=== PATIENT | male | born 1985 | race Caucasian/White ===

== ENCOUNTER 2018-04-25 19:40 | Emergency (ER) | payer OTHER, SELFPAY ==
[2018-04-25 19:48] VITALS: BP 144/97; PULSE 96; RESP 20; TEMP 37; O2SAT 97; BMI 33.0
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
--- NOTE | 2018-04-25 20:03 | DI.RAD.S_ITS ---
PROCEDURE: XR WRIST RT MIN 3V INDICATIONS: [facility] TECHNIQUE: 4 views of the wrist were acquired. COMPARISON: None. FINDINGS: Bones: No fractures or dislocations. No suspicious bony lesions. Scaphoid view: No fracture. Soft tissues: No suspicious soft tissue calcifications. IMPRESSION: No visualized acute fracture or dislocation. However, if clinical concern and/or pain persist, short interval imaging followup in 7-10 days is recommended, as occult injury cannot be definitively excluded. Dictated by: Aisha Keene M.D. on 04/25/2018 at 20:32 Approved by: Aisha Keene M.D. on 04/25/2018 at 20:33
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
[2018-04-25] MEDS: CYCLOBENZAPRINE 10 MG TABLET PO (21:51)
[2018-04-25] MEDS: KETOROLAC 60 MG/2 ML VIAL IM (21:52)
[2018-04-25 22:07] VITALS: BP 126/83; PULSE 75; RESP 16; O2SAT 96
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
--- NOTE | 2018-04-29 17:58 | PC.NURSE ---
Attempted to follow up call,no answer
== END 2018-04-25 22:18 | disposition home or self-care (01) ==
PROVIDERS: Emergency Provider Nurse Practitioner Family
DX: M25.531 Pain in right wrist (principal); M25.511 Pain in right shoulder; V28.4XXA Motorcycle driver injured in noncollision transport accident in traffic accident, initial encounter
CPT/HCPCS: 70450; 72125; 73030; 73110; 96374; 99282; 99284; J1885

== ENCOUNTER → 2019-05-18 09:14 | Outpatient (CLI) | payer OTHER, SELFPAY ==
[2019-05-18 10:08] LABS: Influenza A and B by PCR Rapid Negative (Negative)
== END ==
PROVIDERS: Visit Provider Physician Assistant
DX: R68.89 Other general symptoms and signs (principal)
CPT/HCPCS: 87502

== ENCOUNTER 2022-11-30 21:12 | Emergency (ER) | payer OTHER, SELFPAY ==
[2022-11-30 21:18] VITALS: BP 162/88; PULSE 104; RESP 16; TEMP 36.6; O2SAT 97; BMI 35.9
[2022-11-30 21:21] VITALS: BP 162/88; PULSE 111; O2SAT 96
[2022-11-30 21:30] VITALS: PULSE 107; O2SAT 94
--- NOTE | 2022-11-30 21:39 | DI.RAD.S_ITS ---
PROCEDURE: XR CHEST 2V INDICATIONS: cough TECHNIQUE: 2 views of the chest were acquired. COMPARISON: [facility], , CHEST 2 VIEW, 08/12/2007, 19:39. FINDINGS: Surgical changes and devices: None. Lungs and pleura: Lungs are clear. No pleural effusions or pneumothorax. Mediastinum: Mediastinal contours are normal. Heart size is normal. Bones and chest wall: No suspicious bony abnormalities. Soft tissues appear unremarkable. IMPRESSION: 1. No acute cardiopulmonary disease. Dictated by: Chicho Green M.D. on 11/30/2022 at 22:59 Approved by: Chicho Green M.D. on 11/30/2022 at 22:59
[2022-11-30 22:00] VITALS: PULSE 99; O2SAT 93
[2022-11-30 22:48] LABS: Influenza A - CEPHEID Flu A NEGATIVE (NEGATIVE); Influenza B - CEPHEID Flu B NEGATIVE (NEGATIVE); Respiratory Syncytial Virus Negative (Negative)
[2022-11-30 22:49] LABS: COVID-19 CEPHEID 4-PLEX PCR Negative (Negative)
--- NOTE | 2022-11-30 23:35 | ED.URI ---
HPI - URI/Sore Throat General Chief Complaint: Upper Respiratory Symptoms Stated Complaint: SOB, cough Time Seen by Provider: 11/30/22 23:12 Source: patient Mode of arrival: Ambulatory History of Present Illness HPI Narrative: Patient 37-year-old healthy male presents today with shortness of breath and coughing. He reports that he coughed so hard he blacked out. He has had upper respiratory like symptoms ongoing for about a week more. Nasal congestion headache cough. But he says the cough is getting worse. He is slightly short of breath when he walks. Related Data Previous Rx's Medication Instructions Recorded albuterol sulfate 90 mcg/actuation 2 puff inhalation Q4-6H PRN 05/23/20 aerosol inhaler bronchospasm #8.5 grams prednisone 20 mg tablet 40 mg PO DAILY #10 tabs 12/01/22 Allergies Allergy/AdvReac Type Severity Reaction Status Date / Time hydrocodone [From VICODIN] Allergy Mild itchy Verified 05/23/20 14:23 Review of Systems Review of Systems ROS Unobtainable: All systems reviewed & are unremarkable except as noted in HPI and below Patient History Medical History Pneumonia Sinusitis Social History Smoking Status: Current some day smoker Tobacco: How many years used: 10 Smokeless tobacco user: other (Nicotine lozenge) substance use type: does not use Smoking Status: Current some day smoker tobacco type: vaping alcohol intake frequency: 0-2 drinks per day Alcohol type: beer Substance Use Type: does not use Exam Initial Vital Signs Initial Vital Signs: Vital Signs Temperature 98 F 11/30/22 21:18 Pulse Rate 104 H 11/30/22 21:18 Respiratory Rate 16 11/30/22 21:18 Blood Pressure 162/88 H 11/30/22 21:18 Pulse Oximetry 97 11/30/22 21:18 Oxygen Delivery Method Room Air 11/30/22 21:18 GENERAL: Alert 37-year-old male appears in no acute distress and in no acute distress. HEENT: Head atraumatic,EOMI, pupils reactive, face symmetric, moist mucous membranes CARDIOVASCULAR: Regular rate and rhythm without murmurs, rubs or gallops. RESPIRATORY: Coughing with deep breaths no wheezing rales rhonchi no conversational dyspnea EXTREMITIES: Normal range of motion, no clubbing or edema. Neurovascularly intact NEUROLOGICAL: Alert and oriented x4 SKIN: Warm, dry, no laceration, no petechiae, no rashes or lesions. Course Orders Ordered: ED Orders 11/30/22 21:39 XR chest 2V Stat 11/30/22 21:43 Covid-19 + FLU A/B + RSV - PCR Stat Discontinued Medications Albuterol (Albuterol Hfa Prepack) 1 box MISC SEEINSTR ONE Stop: 11/30/22 23:48 Last Admin: 12/01/22 00:28 Dose: 1 box Documented By: GEORGE Vital Signs Vital signs: Vital Signs - 8 hr 11/30/22 21:18 11/30/22 21:21 11/30/22 21:21 Temperature 98 F Pulse Rate 104 H 111 H Respiratory Rate 16 Blood Pressure 162/88 H 162/88 H Pulse Oximetry 97 96 Oxygen Delivery Method Room Air 11/30/22 21:30 11/30/22 22:00 12/01/22 00:33 Temperature Pulse Rate 107 H 99 H 70 Respiratory Rate Blood Pressure 134/86 Pulse Oximetry 94 93 96 Oxygen Delivery Method Room Air Room Air MDM - URI/Sore Throat Lab Data Labs: Lab Results 11/30/22 Range/Units 21:43 SARS-CoV-2 (PCR) Negative (Negative) Influenza A (RT-PCR) Flu a negative (NEGATIVE) Influenza B (RT-PCR) Flu b negative (NEGATIVE) RSV (PCR) Negative (Negative) Imaging Data Chest x-ray: Radiologist's Impression: PROCEDURE:? XR CHEST 2V ? INDICATIONS:? cough ? TECHNIQUE:? 2 views of the chest were acquired.? ? COMPARISON:? [facility], , CHEST 2 VIEW, 08/12/2007, 19:39. ? FINDINGS:? ? Surgical changes and devices:? None.? ? Lungs and pleura:? Lungs are clear.? No pleural effusions or pneumothorax.? ? Mediastinum:? Mediastinal contours are normal.? Heart size is normal.? ? Bones and chest wall:? No suspicious bony abnormalities.? Soft tissues appear unremarkable.? ? IMPRESSION:? ? 1.? No acute cardiopulmonary disease. ? ? ? Dictated by: Chicho Grene M.D. on 11/30/2022 at 22:59 ? ? MDM Narrative Medical decision making narrative: Patient is 37-year-old male who has upper respiratory like symptoms ongoing for a week with a worsening cough today. X-rays negative lungs are clear symptoms are consistent with a bronchospastic like cough. Respiratory panel is negative. No evidence of sepsis. Signs and symptoms are consistent with viral illness. Discharge Plan Departure Patient Disposition: Home Clinical Impression: Upper respiratory infection Instructions: DI for Viral Upper Respiratory Infection -- Adult Activity Restrictions/Additional Instructions: *You have been diagnosed with upper respiratory infection *What to do: You likely have a viral syndrome. This should get better. Stay hydrated. *Continue to take medications as directed Albuterol 1-2 puffs with spacer every 4 hours if needed for cough or shortness of breath Prednisone 40 mg once a day for 5 days--> [facility] *Follow up with your primary care provider in 2-3 days or call [phone] *Return to ER if you should have increasing shortness of breath difficulty breathing chest pain or any new, worsening or concerning symptoms Prescriptions: New prednisone 20 mg tablet 40 mg PO DAILY Qty: 10 0RF No Action albuterol sulfate 90 mcg/actuation HFA aerosol inhaler 2 puff INHALATION Q4-6H PRN (Reason: bronchospasm) Qty: 8.5 0RF Referrals: Miscellaneous,DoctorMD [Primary Care Provider] - Stand Alone Forms: Patient Portal/API
[2022-12-01] MEDS: ALBUTEROL HFA PREPACK 1 BOX MISC (00:28)
[2022-12-01 00:33] VITALS: BP 134/86; PULSE 70; O2SAT 96
== END 2022-12-01 00:34 | disposition home or self-care (01) ==
PROVIDERS: Emergency Provider Emergency Medicine
DX: J06.9 Acute upper respiratory infection, unspecified (principal); R05.9 Cough, unspecified; Z20.822 Contact with and (suspected) exposure to COVID-19
CPT/HCPCS: 0241U; 71046; 99283

== ENCOUNTER 2023-10-28 03:23 | Emergency (ER) | payer OTHER, SELFPAY ==
--- NOTE | 2023-10-28 03:28 | ED.GENADULT ---
HPI - General Adult General Stated complaint: Object in R ear Time Seen by Provider: 10/28/23 03:28 Source: patient Mode of arrival: Ambulatory Limitations: no limitations History of Present Illness HPI narrative: Patient is a 38-year-old male who is here for evaluation of a piece of a head phone that is stuck in his right ear. It occurred just prior to arrival. Related Data Previous Rx's Medication Instructions Recorded albuterol sulfate 90 mcg/actuation 2 puff inhalation Q4-6H PRN 05/23/20 aerosol inhaler bronchospasm #8.5 grams prednisone 20 mg tablet 40 mg (2 x 20 mg) PO DAILY #10 tabs 12/01/22 Allergies Allergy/AdvReac Type Severity Reaction Status Date / Time hydrocodone [From VICODIN] Allergy Mild itchy Verified 05/23/20 14:23 Review of Systems ENT Ears, Nose, Mouth, and Throat: Reports system reviewed and no additional complaints, except as documented Patient History Medical History Pneumonia Sinusitis Social History Smoking Status: Current some day smoker Tobacco: How many years used: 10 Smokeless tobacco user: other (Nicotine lozenge) substance use type: does not use Smoking Status: Current some day smoker tobacco type: vaping alcohol intake frequency: 0-2 drinks per day Alcohol type: beer Substance Use Type: does not use Exam HENMT Ears: other (Foreign body in right ear) Procedures Foreign Body EAR Location: ear canal (R) Foreign Body Suspected: other (Head phones) TM intact pre-procedure: unable to visualize Foreign Body Removed: yes Foreign Body Removal Technique: forceps Tympanic Membrane Intact Post Procedure: Yes Patient Tolerated Procedure: Well Complications: none Medical Decision Making MDM Narrative Medical decision making narrative: Patient did have a foreign body in his right ear consistent with the piece of a head phone. It was removed without issue. Tympanic membrane intact afterwards. Discharge Plan Departure Patient Disposition: Home Clinical Impression: Acute foreign body of right ear Activity Restrictions/Additional Instructions: You do have some irritation of the ear canal in the right side recommend for the next couple days you do not place anything in your right ear. Your symptoms should improve over the next couple days. Prescriptions: No Action albuterol sulfate 90 mcg/actuation HFA aerosol inhaler 2 puff INHALATION Q4-6H PRN (Reason: bronchospasm) Qty: 8.5 0RF prednisone 20 mg tablet 40 mg PO DAILY Qty: 10 0RF Referrals: Miscellaneous,Doctor, MD [Primary Care Provider] - Stand Alone Forms: Patient Portal/API
[2023-10-28 03:31] VITALS: BP 164/95; PULSE 79; RESP 16; TEMP 36.4; O2SAT 97; BMI 34.2
== END 2023-10-28 03:33 | disposition home or self-care (01) ==
LOC: ED 03:36
PROVIDERS: Emergency Provider Emergency Medicine
DX: T16.1XXA Foreign body in right ear, initial encounter (principal)
CPT/HCPCS: 69200; 99281; 99283

== ENCOUNTER → 2023-12-15 17:22 | Outpatient (CLI) | payer OTHER, SELFPAY ==
[2023-12-15 19:39] LABS: Influenza A - CEPHEID Flu A NEGATIVE (NEGATIVE); Influenza B - CEPHEID Flu B NEGATIVE (NEGATIVE); Respiratory Syncytial Virus Negative (Negative)
[2023-12-15 19:41] LABS: COVID-19 CEPHEID 4-PLEX PCR Negative (Negative)
== END ==
PROVIDERS: Visit Provider Physician Assistant Surgical
DX: R05.1 Acute cough (principal)
CPT/HCPCS: 0241U

== ENCOUNTER → 2024-04-23 07:34 | Outpatient (CLI) | payer OTHER, SELFPAY ==
[2024-04-23 08:47] LABS: Influenza A - CEPHEID Flu A NEGATIVE (NEGATIVE); Influenza B - CEPHEID Flu B NEGATIVE (NEGATIVE); Respiratory Syncytial Virus Negative (Negative)
[2024-04-23 08:49] LABS: COVID-19 CEPHEID 4-PLEX PCR Negative (Negative)
== END ==
PROVIDERS: Visit Provider Physician Assistant Surgical
DX: J02.9 Acute pharyngitis, unspecified (principal); R05.1 Acute cough
CPT/HCPCS: 0241U; 87070; 87077; 87147

== ENCOUNTER → 2024-04-30 09:36 | Outpatient (CLI) | payer OTHER, SELFPAY ==
--- NOTE | 2024-04-30 09:37 | DI.RAD.S_ITS ---
PROCEDURE: XR CHEST 2V INDICATIONS: Shortness of breath TECHNIQUE: 2 views of the chest were acquired. COMPARISON: [facility], CR, XR CHEST 2V, 11/30/2022, 21:37. FINDINGS: Surgical changes and devices: None. Lungs and pleura: An incomplete inspiratory result is noted, causing a crowded appearance to the lung markings. No focal infiltrates are seen. No pneumothorax or significant pleural effusions are seen. Mediastinum: Mediastinal contours are normal. Heart size is normal. Bones and chest wall: No suspicious bony abnormalities. Accentuated thoracic kyphosis is seen. Soft tissues appear unremarkable. IMPRESSION: Low lung volumes, without an acute abnormality seen by plain film. Dictated by: Eduin Pendleton M.D. on 04/30/2024 at 9:17 Approved by: Eduin Pendleton M.D. on 04/30/2024 at 9:18
== END ==
LOC: RAD 09:36
PROVIDERS: Referring Provider Registered Nurse; Visit Provider Registered Nurse
DX: R06.02 Shortness of breath (principal)
CPT/HCPCS: 71046

== ENCOUNTER 2024-11-23 22:22 | Emergency (ER) | payer OTHER, SELFPAY ==
[2024-11-23 22:26] VITALS: BP 164/103; PULSE 72; RESP 18; TEMP 36.5; O2SAT 95; BMI 36.3
[2024-11-23 23:33] VITALS: BP 139/86; PULSE 73; O2SAT 96
--- NOTE | 2024-11-23 23:35 | PC.NURSE ---
Pt reports some confusion with recall of names of things. For instance, he called this place a hotel instead of the hospital.
--- NOTE | 2024-11-23 23:36 | ED.DIZZY ---
HPI - Dizziness General Chief Complaint: Dizziness Stated Complaint: vertigo Time Seen by Provider: 11/23/24 22:56 Source: patient Mode of arrival: Ambulatory History of Present Illness HPI Narrative: 39-year-old male with no known history of stroke, no known history of carotid problems, complains of dizziness and spinning sensation since earlier today. No fevers or chills. No history of allergies. No nasal congestion. No new medications. Denies drug or alcohol use. No focal weakness to face arm or leg. No focal numbness to face arm or leg. Feels pretty steady with his gait. No injury trauma new activities. Related Data Previous Rx's Medication Instructions Recorded benzonatate 200 mg capsule 200 mg PO BID PRN cough #30 caps 04/23/24 albuterol sulfate 90 mcg/actuation 2 puff inhalation Q4-6H PRN 04/30/24 aerosol inhaler shortness of breath or wheezing #6.7 grams meclizine 25 mg tablet 25 mg PO TID 7 days #21 tabs 11/24/24 Allergies Allergy/AdvReac Type Severity Reaction Status Date / Time hydrocodone [From VICODIN] Allergy Mild itchy Verified 04/30/24 09:24 Patient History Medical History Pneumonia Sinusitis Social History Tobacco: How many years used: 10 Smokeless tobacco user: other (Nicotine lozenge) substance use type: does not use tobacco type: vaping alcohol intake frequency: 0-2 drinks per day Alcohol type: beer Exam Narrative Exam Narrative: GENERAL: Well-developed patient, in mild distress. HEAD: Atraumatic. Normocephalic. EYES: Pupils equal round and reactive. Extraocular motions intact. No scleral icterus. No injection or drainage. ENT: Nose without bleeding, purulent drainage. Throat without erythema, tonsillar hypertrophy or exudate. Airway patent. NECK: Trachea midline. Non tender CARDIOVASCULAR: Regular rate and rhythm without murmurs, gallops, or rubs. RESPIRATORY: Clear to auscultation. Breath sounds equal bilaterally. No wheezes, rales, or rhonchi. GASTROINTESTINAL: Abdomen soft, non-tender, nondistended. EXTREMITIES: No edema or joint tenderness. BACK: Nontender without deformity or crepitance. No flank tenderness. NEURO: AOx3. Motor functions grossly nonfocal SKIN: No rash or erythema of visible areas Initial Vital Signs Initial Vital Signs: Vital Signs Temperature 97.7 F 11/23/24 22:26 Pulse Rate 72 11/23/24 22:26 Respiratory Rate 18 11/23/24 22:26 Blood Pressure 164/103 H 11/23/24 22:26 Pulse Oximetry 95 11/23/24 22:26 Oxygen Delivery Method Room Air 11/23/24 22:26 Course Orders Ordered: ED Orders 11/23/24 23:48 CT angio head and neck Stat CT head/brain wo con Stat 11/23/24 23:49 EKG-12 Lead Stat 11/23/24 23:50 CBC Auto Diff [Complete Blood Count AUTO DIFF] Stat CMP [Comprehensive Metabolic Panel] Stat Ethanol (ETOH) Stat Prothrombin Time INR Stat 11/24/24 00:23 Urinalysis and Microscopic Stat Urine Drug Screen, Rapid Stat Discontinued Medications Meclizine HCl (Meclizine Hcl 12.5 Mg Tablet) 50 mg PO NOW ONE Stop: 11/23/24 23:50 Last Admin: 11/23/24 23:56 Dose: 50 mg Documented By: GEORGE Vital Signs Vital signs: Vital Signs - 8 hr 11/23/24 22:26 11/23/24 23:33 11/23/24 23:33 Temperature 97.7 F Pulse Rate 72 73 Respiratory Rate 18 Blood Pressure 164/103 H 139/86 Pulse Oximetry 95 96 Oxygen Delivery Method Room Air Room Air 11/24/24 02:01 11/24/24 02:02 11/24/24 02:02 Temperature Pulse Rate 72 72 Respiratory Rate Blood Pressure 123/69 Pulse Oximetry 98 97 Oxygen Delivery Method MDM - Dizziness Lab Data Attestation: I reviewed the patient's lab results. Lab results narrative: White blood cell count 8100, hemoglobin 13.7, platelets adequate. Basic metabolic panel unremarkable. Glucose 151. Liver functions negative. 11/23/24 23:50 11/23/24 23:50 Labs: Lab Results 11/23/24 11/24/24 11/24/24 Range/Units 23:50 00:23 00:23 WBC 8.1 (4.5-11.0) X10^3/uL RBC 4.41 L (4.5-5.9) X10^6/uL Hgb 13.7 (13.5-17.5) g/dL Hct 39.0 L (41-53) % MCV 88.4 (80-100) fL MCH 31.1 (26-34) PG MCHC 35.2 (30-36) % RDW 13.0 (11.6-14.8) % Plt Count 264 (150-400) X10^3/uL Neut % (Auto) 50.7 (50-75) % Lymph % (Auto) 38.3 (25-40) % [place] % (Auto) 7.6 (3-14) % Eos % (Auto) 3.0 (2-4) % Baso % (Auto) 0.4 (0-2) % Neut # (Auto) 4100 (8083-1715) /uL Lymph # (Auto) 3100 (9790-5182) /uL [place] # (Auto) 600 (0-900) /uL Eos # (Auto) 200 (0-450) /uL Baso # (Auto) 0 (0-100) /uL PT 11.0 (9.4-12.5) SECONDS INR 1.0 (0.9-1.3) Sodium 138 (137-145) mmol/L Potassium 3.8 (3.4-5.1) mmol/L Chloride 107 (98-107) mmol/L Carbon Dioxide 23 (22-32) mmol/L BUN 19 (9-20) mg/dL Creatinine 0.92 (0.66-1.25) mg/dL Estimated GFR > 60 (>60) mL/min BUN/Creatinine Ratio 20.7 (6-22) Glucose 151 H (70-99) mg/dL Calcium 8.8 (8.4-10.2) mg/dL Total Bilirubin 0.3 (0.2-1.3) mg/dL AST 32 (17-59) IU/L ALT 29 (<50) IU/L Alkaline Phosphatase 77 (38-126) U/L Total Protein 6.6 (6.3-8.2) g/dL Albumin 3.9 (3.5-5.0) g/dL Globulin 2.7 (1.7-4.1) g/dL Albumin/Globulin Ratio 1.4 (1.0-2.8) Urine Color Yellow Urine Appearance Clear Urine pH 6.0 TNP (4.5-8.0) Ur Specific [place] 1.020 (1.000-1.035) Urine Protein Negative (Negative) Urine Glucose (UA) Trace H (Negative) g/dL Urine Ketones Negative (NEGATIVE) Urine Occult Blood Negative (Negative) Urine Nitrate Negative (Negative) Urine Bilirubin Negative (NEGATIVE) Urine Urobilinogen 0.2 (0.2) E.U./dL Ur Leukocyte Esterase Negative (NEGATIVE) Urine RBC None seen (0-5/HPF) Urine WBC None seen (0-5/HPF) Ur Squamous Epith Cells None seen (0-5/HPF) Urine Bacteria None seen (None) Ur Culture Indicated? Cult not indicated Vol Urine Centrifuged 10ml (spun) U Opiates 300ng/mL cut Negative (Negative) Ur Oxycodone Screen Negative (Negative) Urine Methadone Screen Negative (Negative) Ur Barbiturates Screen Negative (Negative) U Tricyclic Antidepress Negative (Negative) Ur Phencyclidine Scrn Negative (Negative) Ur Amphetamines Screen Negative (Negative) U Methamphetamines Scrn Negative (Negative) Ur MDMA Scrn (Ecstasy) Negative (Negative) U Benzodiazepines Scrn Negative (Negative) Urine Cocaine Screen Negative (Negative) U Marijuana (THC) Screen Negative (Negative) Urine Specific [place] TNP Ethyl Alcohol < 10 ( - 10) mg/dL Ur Creatinine TNP Imaging Data CT scan - head: Radiologist's Impression: Close Head CT (Signed) Cristofer Gill - 11/23/24 Head/Neck CTA (Signed) Cristofer Gill - 11/23/24 Launch?[place] [address] CT Scan Report Signed Patient: Heladio Dumas MR#: [id number] : 1985 Acct:[id number] Age/Sex: 39 / M Date of Service: 11/23/24 Loc: ED Accession Number: [id number] Procedure: CT head/brain wo con Ordering Provider: Kyle Allan MD PROCEDURE: CT HEAD/BRAIN WO CON INDICATIONS: dizzy TECHNIQUE: Noncontrast 4.5 mm thick angled axial sections acquired from the foramen magnum to the vertex, with coronal and sagittal reformats. For radiation dose reduction, the following was used: automated exposure control, adjustment of mA and/or kV according to patient size. COMPARISON: [facility], CT, CT HEAD/BRAIN WO CON, 04/25/2018, 20:17. FINDINGS: Image quality: Diagnostic. CSF spaces: Basal cisterns are patent. No extra-axial fluid collections. Ventricles are normal in size and shape. Brain: No midline shift. No intracranial mass effect or hemorrhage. Perez-white matter interface is normal. Skull and face: Calvarium and visualized facial bones are intact, without suspicious lesions. Sinuses: Visualized sinuses and mastoids are clear. IMPRESSION: No acute intracranial pathology. Dictated by: Cristofer Gill M.D. on 11/24/2024 at 0:26 Approved by: Cristofer Gill M.D. on 11/24/2024 at 0:27 CTA - brain/neck: Radiologist's Impression: Close Head CT (Signed) Cristofer Gill - 11/23/24 Head/Neck CTA (Signed) Cristofer Gill - 11/23/24 Launch?[place] [address] CT Scan Report Signed Patient: Heladio Dumas MR#: [id number] : 1985 Acct:[id number] Age/Sex: 39 / M Date of Service: 11/23/24 Loc: ED Accession Number: [id number] Procedure: CT head/brain wo con Ordering Provider: Kyle Allan MD PROCEDURE: CT HEAD/BRAIN WO CON INDICATIONS: dizzy TECHNIQUE: Noncontrast 4.5 mm thick angled axial sections acquired from the foramen magnum to the vertex, with coronal and sagittal reformats. For radiation dose reduction, the following was used: automated exposure control, adjustment of mA and/or kV according to patient size. COMPARISON: [facility], CT, CT HEAD/BRAIN WO CON, 04/25/2018, 20:17. FINDINGS: Image quality: Diagnostic. CSF spaces: Basal cisterns are patent. No extra-axial fluid collections. Ventricles are normal in size and shape. Brain: No midline shift. No intracranial mass effect or hemorrhage. Perez-white matter interface is normal. Skull and face: Calvarium and visualized facial bones are intact, without suspicious lesions. Sinuses: Visualized sinuses and mastoids are clear. IMPRESSION: No acute intracranial pathology. Dictated by: Cristofer Gill M.D. on 11/24/2024 at 0:26 Approved by: Cristofer Gill M.D. on 11/24/2024 at 0:27 ECG Data Attestation: I personally reviewed and interpreted this ECG as follows: Interpretation: Normal sinus rhythm with rate of 66. No obvious ST segment elevation or depression changes. Flat T-waves lead F, T-wave inversion lead 3. Upright appearing in lead 2. GA 172, QRS 82, QTC 442. MDM Narrative Medical decision making narrative: 39-year-old male with dizziness through the day today, no recent cold symptoms, no fevers or chills, no injuries, no focal neuro exam findings. Believes his gait feels pretty normal. Denies neck pain or injury. CT head noncontrast study, CT angiogram head and neck vessels ordered. Labs pending. Unremarkable lab studies. EKG shows normal sinus rhythm. CT head noncontrast, no acute changes. See radiology report. CT angiogram head and neck vessels, no significant narrowing, no thrombosis, incidental thyroid nodule noted. See radiology report. Copies reports given to patient with incidental thyroid nodule discussion, can be further followed up as an outpatient. Oral meclizine dose given. 0050, has dry mouth, feels less dizzy, was able to ambulate to the bathroom. Urinalysis results still pending. UA neg Discharged home with family. Return precautions discussed. Prescription sent for further meclizine to use if needed. Discharge Plan Departure Patient Disposition: Home Clinical Impression: Dizziness, Thyroid nodule Activity Restrictions/Additional Instructions: Dizziness symptoms, no fever. Screening labs unremarkable appearance CT head study no acute changes. CT angiogram of the head and neck vessels no acute changes, incidentally noted was left-sided thyroid nodule which can be further worked up as an outpatient for now. Trial of meclizine, symptoms seemed to be improved. Further meclizine prescription sent to your pharmacy to use for the next week or so if needed. Recheck symptoms with your regular doctor early next week. Return to this/nearest emergency department for any change worsening symptoms or any concerns prior. Prescriptions: New meclizine 25 mg tablet 25 mg PO TID 7 Days Qty: 21 0RF No Action benzonatate 200 mg capsule 200 mg PO BID PRN (Reason: cough) Qty: 30 0RF albuterol sulfate 90 mcg/actuation HFA aerosol inhaler 2 puff inhalation Q4-6H PRN (Reason: shortness of breath or wheezing) Qty: 6.7 0RF Referrals: Miscellaneous,Doctor, MD [Primary Care Provider] - Stand Alone Forms: Patient Portal/API/Survey
--- NOTE | 2024-11-23 23:48 | DI.CT.S_ITS ---
PROCEDURE: CT HEAD/BRAIN WO CON INDICATIONS: dizzy TECHNIQUE: Noncontrast 4.5 mm thick angled axial sections acquired from the foramen magnum to the vertex, with coronal and sagittal reformats. For radiation dose reduction, the following was used: automated exposure control, adjustment of mA and/or kV according to patient size. COMPARISON: [facility], CT, CT HEAD/BRAIN WO CON, 04/25/2018, 20:17. FINDINGS: Image quality: Diagnostic. CSF spaces: Basal cisterns are patent. No extra-axial fluid collections. Ventricles are normal in size and shape. Brain: No midline shift. No intracranial mass effect or hemorrhage. Perez-white matter interface is normal. Skull and face: Calvarium and visualized facial bones are intact, without suspicious lesions. Sinuses: Visualized sinuses and mastoids are clear. IMPRESSION: No acute intracranial pathology. Dictated by: Cristofer Gill M.D. on 11/24/2024 at 0:26 Approved by: Cristofer Gill M.D. on 11/24/2024 at 0:27
--- NOTE | 2024-11-23 23:48 | DI.CT.S_ITS ---
PROCEDURE: CT ANGIO HEAD AND NECK INDICATIONS: dizzy TECHNIQUE: After the administration of intravenous contrast, 1 mm thick sections acquired from the aortic arch through the [place]. 3-dimensional kuojrce-zzbbzszod-lxaoekqeim (MIP) and/or volume rendering reformats were acquired of the central intracranial vasculature and neck separately. For radiation dose reduction, the following was used: automated exposure control, adjustment of mA and/or kV according to patient size. COMPARISON: None. FINDINGS: Image quality: Diagnostic. HEAD CT ANGIOGRAPHY: Anterior circulation: Intracranial internal carotid arteries are normal in size and flow. The flow within the paired anterior cerebral arteries is normal and symmetric. The flow within the middle cerebral arteries is normal and symmetric. The anterior communicating artery is seen. No aneurysms are seen. Posterior circulation: Visualized portions of the vertebral arteries demonstrate normal caliber, and join to form a normal appearing basilar artery. Flow within the posterior cerebral arteries is normal and symmetric. No aneurysms are seen. NECK CT ANGIOGRAPHY: Carotid system: The great vessels demonstrate a conventional anatomy as they arise from the aortic arch. The origins of the common carotid arteries appear patent. The common carotid arteries demonstrate normal caliber and courses. The bifurcation regions are both widely patent. The internal carotid arteries demonstrate normal calibers and courses. Posterior circulation: The origins of the vertebral arteries both appear widely patent. The more superior extracranial portions of both vertebral arteries also demonstrate normal courses and calibers. They join to form a normal appearing basilar artery. Soft tissues: Left thyroid 3.2 cm hypodense nodule (4/300). Bones: No suspicious bony lesions. Visualized cervical spine appears normally aligned. IMPRESSION: 1. No large vessel occlusion, dissection, or aneurysm in the visualized head and neck arterial vasculature. 2. Left thyroid 3.2 cm hypodense nodule. Nonemergent thyroid ultrasound follow-up along with thyroid function testing recommended. Any quantitative measurements of stenosis were performed using NASCET criteria. Dictated by: Cristofer Gill M.D. on 11/24/2024 at 0:28 Approved by: Cristofer Gill M.D. on 11/24/2024 at 0:33
--- NOTE | 2024-11-23 23:49 | EKG_ITS ---
[facility] [address], [place] [address] Test Date: 2024-11-24 Pat Name: Heladio Dumas Department: [facility] Room: Gender: Male Digital Asset Coordinator: CANDELARIO : 1985 Requested By: Order Number: [id number] Reading MD: Reese Smith MD Measurements Intervals [place] Rate: 66 P: -6 VA: 172 QRS: -11 QRSD: 82 T: 2 QT: 422 QTc: 442 Interpretive Statements Normal sinus rhythm Electronically Signed On 11-25-2024 10:05:12 PDT by Reese Smith MD
[2024-11-23] MEDS: MECLIZINE HCL 12.5 MG TABLET 50 MG PO (23:56)
[2024-11-24 00:20] LABS: Add Manual Diff / Slide Review NO; Basophils Absolute Auto 0 /uL (0-100); Basophils Percent Auto 0.4 % (0-2); Eosinophils Absolute Auto 200 /uL (0-450); Hemoglobin 13.7 g/dL (13.5-17.5); Lymphocytes Absolute Auto 3100 /uL (1100-4500); Lymphocytes Percent Auto 38.3 % (25-40); Mean Corpuscular HGB Conc 35.2 % (30-36); Mean Corpuscular Hemoglobin 31.1 PG (26-34); Mean Corpuscular Volume 88.4 fL (80-100); Monocytes Absolute Auto 600 /uL (0-900); Monocytes Percent Auto 7.6 % (3-14); Neutrophils Absolute Auto 4100 /uL (1500-7000); Neutrophils Percent Auto 50.7 % (50-75); Platelet Count 264 X10^3/uL (150-400); Red Blood Cell Count 4.41 X10^6/uL (4.5-5.9); White Blood Cell Count 8.1 X10^3/uL (4.5-11.0)
[2024-11-24 00:31] LABS: Alanine Aminotransferase 29 IU/L (<50); Albumin 3.9 g/dL (3.5-5.0); Albumin Globulin Ratio 1.4 (1.0-2.8); Alkaline Phosphatase 77 U/L (38-126); Aspartate Aminotransferase 32 IU/L (17-59); BUN Creatinine Ratio 20.7 (6-22); Bilirubin Total 0.3 mg/dL (0.2-1.3); Blood Urea Nitrogen 19 mg/dL (9-20); Calcium 8.8 mg/dL (8.4-10.2); Carbon Dioxide 23 mmol/L (22-32); Chloride 107 mmol/L (98-107); Estimated Glomerular Filt Rate > 60 mL/min (>60); Ethanol (ETOH) < 10 mg/dL; Globulin 2.7 g/dL (1.7-4.1); Glucose 151 mg/dL (70-99); HEMOLYSIS 16 (0-50); Potassium 3.8 mmol/L (3.4-5.1); Sodium 138 mmol/L (137-145); Total Protein 6.6 g/dL (6.3-8.2)
[2024-11-24 00:57] LABS: UR Morphine/Opiate cutoff 300 Negative (Negative); Urine Amphetamines Negative (Negative); Urine Barbiturates Negative (Negative); Urine Benzodiazepines Negative (Negative); Urine Cocaine Negative (Negative); Urine MDMA Negative (Negative); Urine Methadone Negative (Negative); Urine Methamphetamines Negative (Negative); Urine Oxycodone Negative (Negative); Urine Phencyclidine Negative (Negative); Urine Tetrahydrocannabinol Negative (Negative); Urine Tricyclic Antidepressant Negative (Negative)
[2024-11-24 01:52] LABS: Appearance Urine UA CLEAR; Bilirubin Urine UA NEGATIVE (NEGATIVE); Color Urine UA YELLOW; Glucose Urine UA TRACE g/dL (Negative); Ketones Urine UA NEGATIVE (NEGATIVE); Leukocyte Esterase Urine UA NEGATIVE (NEGATIVE); Nitrite Urine UA NEGATIVE (Negative); Occult Blood Urine UA NEGATIVE (Negative); Protein Urine UA NEGATIVE (Negative); Urobilinogen Urine UA 0.2 E.U./dL (0.2)
[2024-11-24 02:01] VITALS: PULSE 72; O2SAT 98
[2024-11-24 02:02] VITALS: BP 123/69; PULSE 72; O2SAT 97
[2024-11-24 02:07] LABS: Bacteria Urine None Seen; Culture Indicated Urine Cult Not Indicated; RBC Urine None Seen (0-5/HPF); Squamous Epithelial Cell Urine None Seen (0-5/HPF); Urine Volume 10mL (spun); WBC Urine None Seen (0-5/HPF)
== END 2024-11-24 02:06 | disposition home or self-care (01) ==
PROVIDERS: Emergency Provider Emergency Medicine
DX: R42 Dizziness and giddiness (principal); E04.1 Nontoxic single thyroid nodule
CPT/HCPCS: 36415; 70450; 70496; 70498; 80053; 80305; 80320; 81001; 85025; 85610; 93005; 93010; 99283; 99284; Q9967

== ENCOUNTER → 2024-12-09 08:53 | Outpatient (CLI) | payer OTHER, SELFPAY ==
--- NOTE | 2024-12-09 09:50 | DI.RAD.S_ITS ---
PROCEDURE: XR CHEST 2V INDICATIONS: intermittent cough x 3 weeks , feeling unwell TECHNIQUE: 2 views of the chest were acquired. COMPARISON: [facility], CR, XR CHEST 2V, 04/30/2024, 9:42. FINDINGS: Surgical changes and devices: None. Lungs and pleura: Lungs are clear. No pleural effusions or pneumothorax. Mediastinum: Mediastinal contours are normal. Heart size is normal. Bones and chest wall: No suspicious bony abnormalities. Soft tissues appear unremarkable. IMPRESSION: No acute cardiopulmonary abnormality is seen. Dictated by: Izabel Carnes M.D. on 12/09/2024 at 12:37 Approved by: Izabel Carnes M.D. on 12/09/2024 at 12:37
[2024-12-09 10:02] LABS: Add Manual Diff / Slide Review NO; Basophils Absolute Auto 0 /uL (0-100); Basophils Percent Auto 0.3 % (0-2); Eosinophils Absolute Auto 200 /uL (0-450); Eosinophils Percent Auto 2.4 % (2-4); Hematocrit 44.1 % (41-53); Hemoglobin 15.2 g/dL (13.5-17.5); Lymphocytes Absolute Auto 2700 /uL (1100-4500); Lymphocytes Percent Auto 37.2 % (25-40); Mean Corpuscular HGB Conc 34.6 % (30-36); Mean Corpuscular Hemoglobin 30.4 PG (26-34); Mean Corpuscular Volume 87.9 fL (80-100); Monocytes Absolute Auto 500 /uL (0-900); Monocytes Percent Auto 6.6 % (3-14); Neutrophils Absolute Auto 3800 /uL (1500-7000); Neutrophils Percent Auto 53.5 % (50-75); Platelet Count 297 X10^3/uL (150-400); Red Blood Cell Count 5.01 X10^6/uL (4.5-5.9); Red Cell Distribution Width 12.6 % (11.6-14.8); White Blood Cell Count 7.2 X10^3/uL (4.5-11.0)
[2024-12-09 10:09] LABS: Hemoglobin A1C% w Est Avg Glu 5.4 % (4.0-6.0)
[2024-12-09 10:20] LABS: Cholesterol 201 mg/dL (140-199); HDL Cholesterol 40 mg/dL (40-60); LDL Cholesterol Calculated 143 mg/dL (<100); Triglycerides 89 mg/dL (35-150); VLDL Cholesterol Calculated 18 mg/dL (2-30)
[2024-12-09 10:37] LABS: Free T4, Direct Thyroxine 1.07 ng/dL (0.78-2.19)
[2024-12-09 10:50] LABS: TSH w/ Reflex to FT4 1.92 uIU/mL (0.47-4.68)
== END ==
PROVIDERS: PCP Nurse Practitioner Family; Referring Provider Physician Assistant; Visit Provider Physician Assistant
DX: I10 Essential (primary) hypertension (principal); E04.1 Nontoxic single thyroid nodule
CPT/HCPCS: 36415; 71046; 80061; 83036; 84439; 84443; 84481; 85025

== ENCOUNTER → 2024-12-13 10:05 | Outpatient (CLI) | payer OTHER, SELFPAY ==
--- NOTE | 2024-12-13 10:07 | DI.US.S_ITS ---
PROCEDURE: US THYROID INDICATIONS: nodule on CT imaging 3cm left side TECHNIQUE: Real-time scanning was performed of the thyroid gland, with image documentation. COMPARISON: [facility], CT, CT ANGIO HEAD AND NECK, 11/23/2024, 23:55. FINDINGS: Thyroid: Right lobe measures 5.2 x 1.4 x 1.7 cm. Left lobe measures 5.8 x 2.5 x 2.7 cm. Isthmus is 0.8 cm thick. Echotexture is heterogeneous. Nodule number: 1 Location: Left thyroid lobe Size: 4.5 x 3.0 x 4.5 cm. Composition: Solid Echogenicity: Hyperechoic Shape: wider than tall. Margins: Smooth Echogenic foci: None Total points: 3 ACR TI-RADS category: TIRADS 3 (mildly suspicious) IMPRESSION: Large 4.5 x 3.0 x 4.5 cm left TIRADS 3 (mildly suspicious) thyroid nodule which meets consensus criteria for fine-needle aspiration. ACR TI-RADS definitions and recommendations: TI-RADS 1 (benign): 0 points. FNA not needed. TI-RADS 2 (not suspicious): 2 points. FNA not needed. TI-RADS 3: 3 points. * FNA if 2.5 cm or larger, follow up if 1.5 cm or larger (at 1, 3, and 5 years). TI-RADS 4: 4-6 points. * FNA if 1.5 cm or larger, follow up if 1 cm or larger (at 1, 2, 3, and 5 years). TI-RADS 5: 7 points or more. * FNA if 1 cm or larger, follow up if 0.5 cm or larger (every year for 5 years). Dictated by: Manpreet Aldrich M.D. on 12/13/2024 at 11:26 Approved by: Manpreet Aldrich M.D. on 12/13/2024 at 11:31
== END ==
PROVIDERS: PCP Nurse Practitioner Family; Referring Provider Physician Assistant; Visit Provider Physician Assistant
DX: E04.1 Nontoxic single thyroid nodule (principal)
CPT/HCPCS: 76536

== ENCOUNTER → 2024-12-30 13:56 | Outpatient (CLI) | payer OTHER, SELFPAY ==
--- NOTE | 2024-12-30 | PATH_ITS ---
Note [facility] Accession Number: [id number] TESTS RESULT FLAG UNITS REF RANGE LAB Clinician Provided Cytology Information No. of containers..01 Other (Miscellaneous) No. of containers..02 Previously Prepared Cytology Slide Source: LEFT THYROID NODULE DIAGNOSIS: LEFT THYROID NODULE, FINE NEEDLE ASPIRATION. INCONCLUSIVE. BETHESDA CATEGORY III. ATYPIA OF UNDETERMINED SIGNIFICANCE (AUS), SEE COMMENT. COMMENT: EXAMINATION OF THE SMEARS REVEALS A MILDLY CELLULAR ASPIRATE, COMPOSED OF COLLOID AND BENIGN FOLLICULAR GROUPS WITH FOCAL HURTHLE CELL CHANGES. IN ADDITION, THERE ARE FEW GROUPS WHERE MILD NUCLEAR ENLARGEMENT, OVERLAPPING, PALLOR AND RARE NUCLEAR MEMBRANE IRREGULARITIES NOTED. INTRANUCLEAR PSEUDOINCLUSIONS ARE NOT SEEN. THE RISK OF MALIGNANCY IN THE BETHESDA CATEGORY III IS 5-15%. ADDITIONAL MOLECULAR TESTING WILL BE PERFORMED ON THE SUBMITTED RNA VIAL FOR FURTHER EVALUATION. Pathologist ICD10: 01 E04.1 Signed out by: Anitra Guerrero MD, Pathologist NPI- [id number] Performed by: Oumar Coleman, Mechanical Designer ([facility]) Gross description: 30 CC, COLORLESS, CLEAR RECIEVED: IN CYTOLYT WITH 6 ALCOHOL FIXED AND 6 QUICK STAINED SLIDES ALSO 1 RNA VIAL WILL ON 04-08-2025.VO /VDU 01/02/2025 0822 Local FLAG LEGEND: L-Low Normal,H-High Normal,LL-Alert Low,HH-Alert High <-Panic Low,>-Panic High,A-Abnormal,AA-Critical Abnormal Performed at: 01 =Z [facility] [address], [place] [address] Chicho Muñoz MD, Performed at: [address] [facility], [place], [place] [id number] MD Chicho Muñoz MD Phone: [phone]
--- NOTE | 2024-12-30 13:58 | DI.US.S_ITS ---
PROCEDURE: US FINE NEEDLE ASPIRATION INDICATIONS: LEFT THYROID NODULE TECHNIQUE: The indications, alternatives, benefits, risks, and complications of the procedure were explained to the patient. Written informed consent was obtained and placed in the chart. The thyroid region was examined sonographically and a site was chosen for ultrasound guided percutaneous sampling. The skin was prepared and draped in the usual fashion, and anesthetized with 1% lidocaine infiltrated from the skin down to the thyroid gland. Multiple passes were then performed, with contents emptied into an appropriate pathology specimen container. A bandage was applied to the area of access at completion of the study. COMPARISON: None. FINDINGS: Location(s) of lesion(s) sampled: Left thyroid [place]: 25 gauge hypodermic needles. Number of passes: 6 Medications: 1% lidocaine for local anaesthesia. Complications: None. IMPRESSION: Successful ultrasound-guided thyroid nodule fine needle aspiration, with cytology results pending. Please see chart below for management recommendations based on cytology results. [place] [facility] ReportingRecommendationsNon-diagnostic* Repeat US-guided FNA, with on-site cytology evaluation if possible. * Repeated non-diagnostic nodules without high suspicion US features: close observation vs surgical consult. * Consider surgery if nodule has high suspicion US features, grows >20% in 2 dimensions on followup, or patient has clinical risk factors for malignancy. Benign* If nodule has high suspicion US features: repeat US and FNA within 12 months. * If nodule has low to intermediate suspicion US features: repeat US at 12-24 months. If nodule grows (20% increase in at least 2 dimensions, with minimal increase of 2 mm or >50% change in volume), or development of new suspicious US features, then repeat FNA or continue followup. * If nodule has very low suspicion US features: followup US at >24 months. Atypia of undetermined significance, follicular lesion of undetermined significanceRepeat FNA, molecular testing, followup US, or surgical consult.Follicular neoplasm, suspicious for follicular neoplasmSurgical consult; also consider molecular testing. Suspicious for malignancySurgical consult.MalignantSurgical consult. Dictated by: Justin Clay M.D. on 12/30/2024 at 17:29 Approved by: Justin Clay M.D. on 12/30/2024 at 17:29
== END ==
LOC: US 13:57
PROVIDERS: PCP Nurse Practitioner Family; Referring Provider Physician Assistant; Visit Provider Physician Assistant
DX: E04.1 Nontoxic single thyroid nodule (principal)
CPT/HCPCS: 10005